=== PATIENT | male | born 1955 | race Hispanic/Latino ===

== ENCOUNTER 2018-05-19 17:37 | Inpatient (IN) | payer OTHER ==
[2018-05-19 17:42] VITALS: BMI 27.1
[2018-05-19 18:00] LABS: BASO # 0.1 K/uL (0.0-0.2); BASO % 0.4 % (0.0-2.0); EOS # 0.1 K/uL (0.0-0.7); EOS % 1.1 % (0.0-4.0); HEMOGLOBIN 16.6 g/dL (12.0-18.0); LYMPH # 2.1 K/uL (1.0-4.3); LYMPH % 16.4 % (20.0-40.0); MEAN CELL VOLUME 89.7 fl (80.0-94.0); MEAN CORPUSCULAR HEMOGLOBIN 29.8 pg (27.0-31.0); MEAN CORPUSCULAR HGB CONC 33.2 g/dL (33.0-37.0); MEAN PLATELET VOLUME 8.9 fl (7.2-11.7); MONO # 0.9 K/uL (0.0-0.8); MONO % 6.9 % (0.0-10.0); NEUT # 9.6 K/uL (1.8-7.0); NEUT % 75.2 % (50.0-75.0); NRBC % 0.1 % (0.0-0.0); RBC 5.58 Mil/uL (4.40-5.90); RED CELL DISTRIBUTION WIDTH 13.8 % (11.5-14.5); WHITE BLOOD COUNT 12.8 K/uL (4.8-10.8)
[2018-05-19 18:07] LABS: BLOOD UREA NITROGEN 13 mg/dl (9-20); CALCIUM 9.5 mg/dL (8.4-10.2); GFR NON-AFRICAN AMERICAN > 60
--- NOTE | 2018-05-19 18:27 | ED PDOC ---
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 Patient was found outside of police department rambling about hotel, but not providing any information and not wearing shoes. He was combative when he came in. Patient was not complaint, required restraints and chemical sedation. Past Medical History Reviewed: Nursing Documentation, Vital Signs, Unable To Obtain Vital Signs: Last Vital Signs Temp 97.2 F L 05/19/18 18:18 Pulse 89 05/19/18 18:18 Resp 13 05/19/18 18:18 BP 127/78 05/19/18 18:18 Pulse Ox 100 05/19/18 18:18 - Family History Family History: States: Unknown Family Hx - Home Medications Home Medications: Ambulatory Orders Medication Instructions Recorded RX: No Known Home Med 05/21/18 - Allergies Allergies/Adverse Reactions: Allergies Allergy/AdvReac Type Severity Reaction Status Date / Time No Known Allergies Allergy Verified 05/19/18 17:42 Review of Systems ROS Statement: Except As Marked, All Systems Reviewed And Found Negative Neurological: Positive for: Altered Mental Status Physical Exam - Reviewed Nursing Documentation Reviewed: Yes Vital Signs Reviewed: Yes - Physical Exam Skin: Negative for: Rash Respiratory: Positive for: Normal Breath Sounds Gastrointestinal/Abdominal: Positive for: Normal Exam, Soft. Negative for: Tenderness Comments: Patient is agitated, incomprehensible with incoherent speech. He is combative, flailing all extremities and kicking staff. No visible signs of trauma or any abnormalities. - Laboratory Results Result Diagrams: 05/19/18 17:50 05/19/18 17:50 - ECG ECG Rhythm: Positive for: Sinus Tachycardia O2 Sat by Pulse Oximetry: 100 (RA) Pulse Ox Interpretation: Normal Medical Decision Making Medical Decision Making: Time: 1741 EDP will rule out organic cause --Patient sedated --Labs sent including alcohol and drug screen --1:1 --monitoring and evaluation advisor --Will reassess patient --Continue to observe --- Scribe Attestation: Documented by Hetal Almaraz, acting as a scribe for Mary Sanders MD Provider Scribe Attestation: All medical record entries made by the Scribe were at my direction and personally dictated by me. I have reviewed the chart and agree that the record accurately reflects my personal performance of the history, physical exam, medical decision making, and the department course for this patient. I have also personally directed, reviewed, and agree with the discharge instructions and disposition. 1900: Pt sedated. Labs and CXR pending. Pt to be signed out to Dr. Onofre pending res ults and resolution of AMS. Disposition - Clinical Impression Clinical Impression: Bipolar 1 disorder - Disposition Disposition: Transfer of Care Disposition Time: 19:00 (Dr. Onofre will follow) Condition: STABLE
[2018-05-20 06:08] LABS: BARBITURATES, UR NEGATIVE (NEGATIVE); BENZODIAZEPINES, UR NEGATIVE (NEGATIVE); OPIATES, UR NEGATIVE (NEGATIVE); PHENCYCLIDINE, UR NEGATIVE (NEGATIVE)
--- NOTE | 2018-05-20 06:28 | ED PDOC ---
- Laboratory Results Result Diagrams: 05/19/18 17:50 05/19/18 17:50 - ECG O2 Sat by Pulse Oximetry: 99 (RA) Pulse Ox Interpretation: Normal Medical Decision Making Medical Decision Making: Time: 190 Patient endorsed to me by Dr. Sanders, pending results and resolution of AMS. Time:623 -- Spoke to sister of the patient who provided collateral. Sister states patient is diagnosed with Bipolar Disorder and is off his medications. Sister reports of having last seen the patient one week ago. Sister states patient had pressured speech and seemed manic. Sister believes the patient is a risk to himself. Patient is currently awake and alert. During interview, patient has flight of ideas but is redirectable. Time: 699 -- Patient endorsed to Dr. Darden, pending CT and [facility] psychiatric screening. Scribe Attestation: Documented by Danielle Meyer, acting as a scribe for Abdiaziz Onofre MD. Provider Scribe Attestation: All medical record entries made by the Scribe were at my direction and personally dictated by me. I have reviewed the chart and agree that the record accurately reflects my personal performance of the medical decision making and dispostion for this patient. I have also personally directed, reviewed, and agree with the discharge instructions and disposition. Disposition - Clinical Impression Clinical Impression: Bipolar 1 disorder - POA Present On Arrival: None - Disposition Disposition: Transfer of Care Disposition Time: 07:00 Condition: FAIR Forms: [employer] (Kazakh) Patient Signed Over To: Jolanta Darden Handoff Comments: pending [facility] eval
--- NOTE | 2018-05-20 08:04 | ED PDOC ---
- Laboratory Results Result Diagrams: 05/19/18 17:50 05/19/18 17:50 - ECG O2 Sat by Pulse Oximetry: 99 (RA) Medical Decision Making Medical Decision Making: received patient from Dr. Onofre. Patient is pending [facility] evaluation. At present he is calm and without distress. patient has been calm the past 8 hours. Still pending [facility] evaluation. Disposition - Clinical Impression Clinical Impression: Bipolar 1 disorder - POA Present On Arrival: None - Disposition Disposition: Transfer of Care Disposition Time: 14:59 Condition: FAIR Forms: [facility] [employer] (Mohawk) Patient Signed Over To: Mojgan Caldwell
[2018-05-20] MEDS ORDERED: Sodium Chloride 0.9% 1,000 ML IV STA (08:18)
--- NOTE | 2018-05-20 09:07 | RAD ---
Date of service: 05/19/2018 HISTORY: possible admission COMPARISON: No prior. FINDINGS: LUNGS: Mild crowding at the right lung base and to a lesser degree at the left lung base. No focal infiltrate. PLEURA: No significant pleural effusion identified, no pneumothorax apparent. CARDIOVASCULAR: No aortic atherosclerotic calcification present. Mildly enlarged. No pulmonary vascular congestion. OSSEOUS STRUCTURES: No significant abnormalities. VISUALIZED UPPER ABDOMEN: Normal. OTHER FINDINGS: None. IMPRESSION: No focal infiltrate.
[2018-05-20 09:08] LABS: URINE BACTERIA RARE (<OCC); URINE BILIRUBIN NEGATIVE (NEGATIVE); URINE BLOOD NEGATIVE (NEGATIVE); URINE CLARITY CLOUDY (Clear); URINE COLOR YELLOW (YELLOW); URINE GLUCOSE (UA) NEG (Normal); URINE LEUKOCYTE ESTERASE NEG Leu/uL (Negative); URINE PROTEIN NEGATIVE (NEGATIVE)
[2018-05-20 09:09] LABS: SQUAMOUS EPITHIAL 3 /hpf (0-5)
--- NOTE | 2018-05-20 10:38 | CT ---
Date of service: 05/20/2018 PROCEDURE: CT HEAD WITHOUT CONTRAST. HISTORY: AMS COMPARISON: None available. TECHNIQUE: Axial computed tomography images were obtained through the head/brain without intravenous contrast. Radiation dose: Total exam DLP = 922.51 mGy-cm. This CT exam was performed using one or more of the following dose reduction techniques: Automated exposure control, adjustment of the mA and/or kV according to patient size, and/or use of iterative reconstruction technique. FINDINGS: HEMORRHAGE: No intracranial hemorrhage. BRAIN: No mass effect or edema. There is evidence of mild age related atrophy and small vessel changes in the white matter tracts. No cortical effacement is seen. Posterior fossa is unremarkable. VENTRICLES: Unremarkable. No hydrocephalus. CALVARIUM: Unremarkable. PARANASAL SINUSES: Moderate pansinusitis MASTOID AIR CELLS: Unremarkable as visualized. No inflammatory changes. OTHER FINDINGS: Orbits are unremarkable. IMPRESSION: No evidence of recent infarct or intracranial hemorrhage. This agrees with preliminary report. Chronic sinusitis.
--- NOTE | 2018-05-20 15:42 | ED PDOC ---
- Laboratory Results Result Diagrams: 05/19/18 17:50 05/19/18 17:50 - ECG O2 Sat by Pulse Oximetry: 99 (RA) Medical Decision Making Medical Decision Makin:00 Patient signed out to this provider by Dr. Darden. Pending [facility] evaluation for involuntary psychiatric admission. Patient was medically cleared by previous shift. Patient is stable at this time. 00:00 Patient signed out to Dr. Rebolledo pending bed availability at [facility] Scribe Attestation: Documented by Omar Almaraz acting as a scribe for Mojgan Caldwell MD. Provider Scribe Attestation: All medical record entries made by the Scribe were at my direction and personally dictated by me. I have reviewed the chart and agree that the record accurately reflects my personal performance of the history, physical exam, medical decision making, and the department course for this patient. I have also personally directed, reviewed, and agree with the discharge instructions and disposition. Disposition - Clinical Impression Clinical Impression: Bipolar 1 disorder - POA Present On Arrival: None - Disposition Disposition: Transfer of Care Disposition Time: 00:00 Condition: STABLE Forms: [employer] (Czech)
--- NOTE | 2018-05-21 00:10 | ED PDOC ---
- Laboratory Results Result Diagrams: 05/19/18 17:50 05/19/18 17:50 - ECG O2 Sat by Pulse Oximetry: 99 Medical Decision Making Medical Decision Makin:00 Patient endorsed to provider by Dr. Caldwell pending [facility] [place]. Patient has been accepted to [facility]. 0300 pt resting comfortably in no distress. 07:00 -Patient will be signed out to Dr. Lima pending [facility] [place]. Scribe Attestation: Documented by Yusuf Weston, acting as a scribe for Lenny Rebolledo MD. Provider Scribe Attestation: All medical record entries made by the Scribe were at my direction and personally dictated by me. I have reviewed the chart and agree that the record accurately reflects my personal performance of the history, physical exam, medical decision making, and the department course for this patient. I have also personally directed, reviewed, and agree with the discharge instructions and disposition. Disposition - Clinical Impression Clinical Impression: Bipolar 1 disorder - POA Present On Arrival: None - Disposition Disposition: Transfer of Care Disposition Time: 07:00 Condition: STABLE Patient Signed Over To: Live Lima
--- NOTE | 2018-05-21 07:27 | ED PDOC ---
- Laboratory Results Result Diagrams: 05/19/18 17:50 05/19/18 17:50 - ECG O2 Sat by Pulse Oximetry: 99 (RA) Pulse Ox Interpretation: Normal Medical Decision Making Medical Decision Makin Patient signed out to me by Dr. Rebolledo. Patient currently pending [facility] bed availability. 1700 Patient to be signed out to Dr. Caldwell pending [facility] bed availability. Scribe Attestation: Documented by Terese Robledo, acting as a scribe for Live Lima MD. Provider Scribe Attestation: All medical record entries made by the Scribe were at my direction and personally dictated by me. I have reviewed the chart and agree that the record accurately reflects my personal performance of the history, physical exam, medical decision making, and the department course for this patient. I have also personally directed, reviewed, and agree with the discharge instructions and disposition. Disposition - Clinical Impression Clinical Impression: Bipolar 1 disorder - POA Present On Arrival: None - Disposition Disposition: Transfer of Care Disposition Time: 17:00 Condition: STABLE
--- NOTE | 2018-05-21 10:17 | CARD ---
APPROVED REPORT Date of service: 05/20/2018 EKG Measurement Heart [id number] <Conclusion> Sinus rhythm with sinus arrhythmia with occasional premature ventricular complexes Otherwise normal ECG
--- NOTE | 2018-05-21 12:45 | CP.PCM.CON ---
History of Present Illness - History of Present Illness History of Present Illness: pt is 62 ys old male with previous psychiatric diagnosis of bipolar disorder, brought to ER by police for exhibiting disorganized behavior Pt displayed combative behavior upon arrival to ER and had to be chemically and physically restrained pt has been psychotic irritable, agitated refusing voluntary admission, pt was screened by [facility] and found to meet criteria for involuntary admission pt ON EVALUATION TODAY, FLORIDLY PSYCHOTIC, PRESENTING WITH LABILE AFFECT, LOUD AND PRESSURED SPEECH, thought process is tangential, , refusing medications and refusing voluntry admission, with no insight into his illness Past Patient History - Past Social History Smoking Status: Unknown If Ever Smoked - CARDIAC Hx Cardiac Disorders: No Hx Hypertension: No - PULMONARY Hx Tuberculosis: No - NEUROLOGICAL HX Cerebrovascular Accident: No Hx Seizures: No - HEMATOLOGICAL/ONCOLOGICAL Hx Cancer: No Hx Human Immunodeficiency Virus (HIV): No - GENITOURINARY/GYNECOLOGICAL Hx Sexually Transmitted Disorders: No - PSYCHIATRIC Hx Substance Use: No (Unkown) - SURGICAL HISTORY Hx Surgeries: No (Unable to obtain) Meds Allergies/Adverse Reactions: Allergies Allergy/AdvReac Type Severity Reaction Status Date / Time No Known Allergies Allergy Verified 05/19/18 17:42 Results - Vital Signs Recent Vital Signs: Last Vital Signs Temp 98.1 F 05/21/18 08:00 Pulse 87 05/21/18 08:00 Resp 18 05/21/18 08:00 BP 138/76 05/21/18 08:00 Pulse Ox 95 05/21/18 08:00 - Labs Result Diagrams: 05/19/18 17:50 05/19/18 17:50 Labs: Laboratory Results - last 24 hr 05/19/18 17:42 POC Glucose (mg/dL) 112 H Assessment & Plan - Assessment and Plan (Free Text) Assessment: Bipolar disorder MRE mixed severe with psychotic features cannabis use disorder Plan: pt has been accepted for involuntary admission by [facility] , AWAITING BED recommend starting risperidone 1mg bid recommend starting haldol 5mg po q6prn for agitation ativan 1mg po q6prn for anxiety benadryl 25mg po q6 prn for EPS
--- NOTE | 2018-05-21 17:27 | ED PDOC ---
- Laboratory Results Result Diagrams: 05/19/18 17:50 05/19/18 17:50 - ECG O2 Sat by Pulse Oximetry: 99 (RA) - Progress ED Course And Treament: 5p Rec'd endorsement from Dr Lima. Pt accepted for transfer to [facility] for Involuntary psychiatric unit. Pending bed availability. Medical Decision Making Medical Decision Makin:00 0000 --Care endorsed to Dr. Mckinney pending [facility] bed availability Scribe Attestation: Documented by Henrietta Kessler, acting as a scribe for Mojgan Caldwell MD Provider Scribe Attestation: All medical record entries made by the Scribe were at my direction and personally dictated by me. I have reviewed the chart and agree that the record accurately reflects my personal performance of the history, physical exam, medical decision making, and the department course for this patient. I have also personally directed, reviewed, and agree with the discharge instructions and disposition. Disposition - Clinical Impression Clinical Impression: Bipolar 1 disorder - POA Present On Arrival: None - Disposition Disposition: Transfer of Care Disposition Time: 00:00 Condition: STABLE Patient Signed Over To: Kj Mckinney
--- NOTE | 2018-05-22 03:34 | ED PDOC ---
- Laboratory Results Result Diagrams: 05/19/18 17:50 05/19/18 17:50 - ECG O2 Sat by Pulse Oximetry: 99 (RA) Pulse Ox Interpretation: Normal Medical Decision Making Medical Decision Makin --Care endorsed to this provider by Dr. Caldwell pending [facility] bed availability. 0700 --Patient will be signed out to Dr. Pennington pending bed availability. Scribe Attestation: Documented by Henrietta Kessler, acting as a scribe for Kj Mckinney MD Provider Scribe Attestation: All medical record entries made by the Scribe were at my direction and personally dictated by me. I have reviewed the chart and agree that the record accurately reflects my personal performance of the history, physical exam, medical decision making, and the department course for this patient. I have also personally directed, reviewed, and agree with the discharge instructions and disposition. Disposition - Clinical Impression Clinical Impression: Bipolar 1 disorder - POA Present On Arrival: None - Disposition Disposition: Admitted as In-Patient Disposition Time: 22:00 Condition: FAIR Forms: [employer] (Serbian)
[2018-05-22] MEDS ORDERED: DiphenhydrAMINE 50 mg/ml Inj IM PRN (12:00)
[2018-05-22] MEDS ORDERED: Alum-Mag Hydrox-Simethicone Susp (30 mL) PO PRN (12:00)
[2018-05-22] MEDS ORDERED: Magnesium Hydroxide Susp 30 ml UD PO PRN (12:00)
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
--- NOTE | 2018-05-22 14:55 | PCM.PSYCH ---
Initial Psychiatric Evaluation - Initial Psychiatric Evaluation Type of Admission: Voluntary Legal Status: Capacity Chief Complaint (in patient's own words): I just wanted to travel and have some fun History of Present Illness and Precipitating Events: pt is a 62 ys old male with previous psychiatric diagnosis of bipolar disorder, cannabis abuse, non compliant for medications or follow up , brought to ER by police for disorganized behaviour , pt has been loud and combative in ER had to be chemically restrained on evaluation pt is manic , presenting with pressured and loud speech, labile affect alternating between laughing inappropriately and unprovoked episodes of crying, thought process tangential , with loose association stated that he has been travelling to have fun and explore the world, floridly psychotic stating that his belongs to a cult and she is the one who is sick, no insight into illness , does not beleive he needs medication, pt reported he has been using cannabis daily, denied command hallucinations, collateral information/ obtained pt's sibling (Andry's phone [phone]) from Dr. Onofre, whom reported that she lives in [place] and pt also resides in that same state. Pt's sibling reported pt lives in [place], [place] and he has a psychiatric diagnosis of Bipolor Disorder. Pt's sibling stated that pt has been admitted to psychiatric inpatient units before due to his non-compliance with psychiatric treatment, including medication. As per pt's sibling, it seems like pt's intention into traveling across states is to "get a job." Pt's sibling reported that pt was stopped by the police for a DUI on 05/14/2018 and his car got impounded. Pt's sibling stated that pt would tell everyone he is ,but he is not. Pt's sibling reported pt is very upset with his (Korin) because she became yarsani and she attends yazidi regularly;however, pt's sibling stated that pt would not talk her, in his state of mind pt assures that his is following a cult. Pt's sibling believes pt would benefit from being admitted so that he can stabilize mentally. *Note: Pt's sibling provided pt's and son's phone number in order to keep them inform about well-being and request any additional information. Korin's - [phone]/ Regee-pt's son [phone] Current Medications: Active Medications Generic Name Dose Route Start Last Admin Trade Name Freq PRN Reason Stop Dose Admin Acetaminophen 650 mg 05/22/18 12:00 Tylenol 325mg Tab PO Q4 PRN Pain, moderate (4-7) Al Hydrox/Mg Hydrox/Simethicone 30 ml 05/22/18 12:00 Maalox Plus 30 Ml PO Q4 PRN Dyspepsia Diphenhydramine HCl 50 mg 05/22/18 12:00 Benadryl IM Q6 PRN Extrapyramidal S/S Unable PO Diphenhydramine HCl 50 mg 05/22/18 12:00 Benadryl PO Q6 PRN Extrapyramidal Symptoms Haloperidol 5 mg 05/22/18 12:00 Haldol PO Q4 PRN Agitation Haloperidol Lactate 5 mg 05/22/18 12:00 Haldol IM Q4 PRN Agitation, Unable to Take PO [place] Carbonate 300 mg 05/22/18 22:00 [place] Carbonate 300mg PO HS FLORIDALMA [place] Carbonate 300 mg 05/23/18 09:00 [place] Carbonate 300mg PO DAILY FLORIDALMA Lorazepam 2 mg 05/22/18 12:00 Ativan IM Q4 PRN Anxiety/Agitation,Unable PO Lorazepam 1 mg 05/22/18 12:00 Ativan PO Q8 PRN Anxiety/Agitation Magnesium Hydroxide 30 ml 05/22/18 12:00 Milk Of Magnesia PO HS PRN Constipation Trazodone HCl 100 mg 05/22/18 22:00 Desyrel PO HS FLORIDALMA Past Psychiatric History - Past Psychiatric History Explanation of prior treatment: pt has multiple hospitalizations, hx of non compliance with treatment or follow up History of ETOH/Drug Use: hx of cannabis use Pertinent Medical Hx (Current Medical&Sleep Prob, Allergies): Allergies Allergy/AdvReac Type Severity Reaction Status Date / Time No Known Allergies Allergy Verified 05/19/18 17:42 No Known Home Med 05/21/18 Mental Status Examination - Personal Presentation Personal Presentation: Looks older than stated age - Affect Additional comments: labile - Motor Activity Motor Activity: Psychomotor Agitation - Reliability in Providing Information Reliability in Providing Information: Poor, due to alteration in thoughts, Poor, due to altered mood - Speech Speech: Disorganized, Tangential - Mood Mood: Anxious, Euphoric - Formal Thought Process Formal Thought Process: Delusions, Paranoia, Loosening of associations - Obsessions/Compulsions Obsessions: No Compulsions: No - Cognitive Functions Orientation: Person Attention/Concentration: Easily distracted Abstract Thinking: Dixon Judgement: Imparied, as evidence by: Poor judgement, Imparied, as evidence by: Lack of insight into illness - Strength & Assets Inventory Strength & Assets Inventory: Education - Limitations Additional comments: poor insight DSM 5 DX - DSM 5 DSM 5 Diagnosis: bipolar I disorder MRE manic severe with psychotic features - Recommended/Plan of Treatment Treatment Recommendations and Plan of Treatment: start lithium 300mg bid start risperidone 1mg qhs encourage compliance increase gradually internal medicine consult CBT group and supportive therapy
[2018-05-22] MEDS: Risperidone M TAB 2 MG PO SCH (21:36)
[2018-05-23 09:08] LABS: T4 9.11 ug/dl (5.5-11.0)
[2018-05-23 10:44] VITALS: O2SAT 99
--- NOTE | 2018-05-23 17:24 | PCM.PYCHPN ---
Psychiatric Progress Note - Psychiatric Progress Note Patient seen today, length of contact: pt evaluated discussed with team chart reviewed Patient Chief Complaint: I know the medicine makes me sick Problems Identified/Issues Discussed: pt evaluated, speech pressured and loud, tangential thought process with loose association, paranoid delusions towards and family, limited insight into illness continues to believe he does , need medication, no reported side effects, denied suicidal or homicidal ideation, denied command hallucinations Medical Problems: pt has multiple hospitalizations, hx of non compliance with treatment or follow up DSM 5 Symptoms Update: bipolar disorder manic Medication Change: No Medical Record Reviewed: Yes Mental Status Examination - Cognitive Function Orientation: Person, Place, Situation Memory: Intact Attention: Poor Concentration: Poor Association: Loose Fund of Knowledge: Poor Decription of patient's judgement and insights: poor insight and judgment - Mood Mood: Anxious, Euphoric - Affect Additional comments: labile - Formal Thought Process Formal Thought Process: Delusions, Paranoia, Loosening of associations - Suicidal Ideation Suicidal Ideation: No - Homicidal Ideation Homicidal Ideation: No Goal/Treatment Plan - Goal/Treatment Plan Need for Continued Stay: Severe depression anxiety, Discharge may exacerbated symptoms, Failed transitioning Progress Toward Problem(s) and Goals/Treatment Plan: lithium 300mg bid risperidone 1mg qhs encourage compliance increase gradually CBT group and supportive therapy
[2018-05-23] MEDS: Risperidone M TAB 2 MG PO SCH (21:20)
--- NOTE | 2018-05-24 14:51 | PCM.PYCHPN ---
Psychiatric Progress Note - Psychiatric Progress Note Patient seen today, length of contact: pt evaluated discussed with team chart reviewed Patient Chief Complaint: I feel stable with the lithium but I am worried about my kidneys Problems Identified/Issues Discussed: pt evaluated, less labile,speech less pressured and thought process more organized, pt continues to be argumentative about need for medication with limited insight stating he medicates himself with cannabis, psychoeducation provided n reference to side effects of lithium, discussed with pt need to follow up with kidney functions , encouraged compliance, no reported side effects, encouraged to attaend groups pt denied perceptual disturbances, denied S/HI Medical Problems: pt has multiple hospitalizations, hx of non compliance with treatment or follow up DSM 5 Symptoms Update: bipolar I disorder manic severe with psychotic features Medication Change: No Medical Record Reviewed: Yes Mental Status Examination - Cognitive Function Orientation: Person, Place, Situation Memory: Intact Attention: WNL Concentration: WNL Association: WNL Fund of Knowledge: WNL Decription of patient's judgement and insights: poor insight and judgment - Mood Mood: Anxious, Euphoric - Formal Thought Process Formal Thought Process: Delusions, Paranoia, Loosening of associations - Suicidal Ideation Suicidal Ideation: No - Homicidal Ideation Homicidal Ideation: No Goal/Treatment Plan - Goal/Treatment Plan Need for Continued Stay: Severe depression anxiety, Discharge may exacerbated symptoms, Failed transitioning Progress Toward Problem(s) and Goals/Treatment Plan: lithium 300mg bid/ FOLLOW UP ON LITHIUM LEVEL risperidone 2mg qhs encourage compliance increase gradually CBT group and supportive therapy
[2018-05-24] MEDS: Risperidone M TAB 2 MG PO SCH (21:24)
--- NOTE | 2018-05-25 09:47 | PCM.PYCHPN ---
Psychiatric Progress Note - Psychiatric Progress Note Patient seen today, length of contact: pt evaluated discussed with team chart reviewed Patient Chief Complaint: I will use weed to medicate myself it works better Problems Identified/Issues Discussed: pt evaluated,, calmer and less irritable but continues to have overproductive speech with circumstantial and tangential thought process, pt continues to verbalize paranoid delusions towards his and his sibilings, pt has no insight intoo his illness and the need for medications psychoeduction provided discussed with pt possible increase in dose of lithium after checking lithium level, also discussed starting risperidone consta to ensure compliance , but pt declined encouraged pt to attend groups, motivational therapy provided in reference to cannabis abuse Medical Problems: pt has multiple hospitalizations, hx of non compliance with treatment or follow up DSM 5 Symptoms Update: bipolar I disorder MRE manic severe with psychotic features Medication Change: Yes (increase lithium) Medical Record Reviewed: Yes Mental Status Examination - Cognitive Function Orientation: Person, Place, Situation Memory: Intact Attention: WNL Concentration: Poor Association: Loose Fund of Knowledge: WNL Decription of patient's judgement and insights: poor insight and judgment - Mood Mood: Anxious, Euphoric - Affect Affect: Other Additional comments: labile - Speech Speech: Loud, Pressured - Formal Thought Process Formal Thought Process: Delusions, Paranoia, Loosening of associations - Suicidal Ideation Suicidal Ideation: No - Homicidal Ideation Homicidal Ideation: No Goal/Treatment Plan - Goal/Treatment Plan Need for Continued Stay: Severe depression anxiety, Discharge may exacerbated symptoms, Failed transitioning Progress Toward Problem(s) and Goals/Treatment Plan: lithium 300mg bid/ FOLLOW UP ON LITHIUM LEVEL 05/26/18 with plan to increase to 900mg daily risperidone 2mg qhs, encourage starting risperidone consta to ensure compliance CBT group and supportive therapy
[2018-05-25] MEDS: Risperidone M TAB 2 MG PO SCH (21:20)
[2018-05-26] MEDS ORDERED: risperiDONE Consta 25mg/2ml Syringe IM ONE (11:07)
--- NOTE | 2018-05-26 11:11 | PCM.PYCHPN ---
Psychiatric Progress Note - Psychiatric Progress Note Patient seen today, length of contact: pt evaluated discussed with team chart reviewed Patient Chief Complaint: I WILL TRY THE INJECTION Problems Identified/Issues Discussed: pt evaluated,,reported feeling more stable, affect less labile , speech continues to be over productive, pt in agreemet with starting risperidone consta for compliance, also discussed increasing lithium, lithium level noted 0.4, pt denied any current perceptual disturbances denied S/ H I encouraged pt to attend groups, motivational therapy provided in reference to cannabis abuse Medical Problems: pt has multiple hospitalizations, hx of non compliance with treatment or follow up DSM 5 Symptoms Update: BIPOLAR I DISORDER MANIC Medication Change: Yes (increase lithium) Medical Record Reviewed: Yes Mental Status Examination - Cognitive Function Orientation: Person, Place, Situation Memory: Intact Attention: WNL Concentration: Poor Association: Loose Fund of Knowledge: WNL Decription of patient's judgement and insights: poor insight and judgment - Mood Mood: Anxious, Euphoric - Affect Affect: Other - Speech Speech: Loud, Pressured - Formal Thought Process Formal Thought Process: Delusions, Paranoia, Loosening of associations - Suicidal Ideation Suicidal Ideation: No - Homicidal Ideation Homicidal Ideation: No Goal/Treatment Plan - Goal/Treatment Plan Need for Continued Stay: Severe depression anxiety, Discharge may exacerbated symptoms, Failed transitioning Progress Toward Problem(s) and Goals/Treatment Plan: lithium 300mg DAILY AND 450mg qhs . li level 0.4 risperidone 2mg qhs, starting risperidone consta IM 25mg q 2 weeks to ensure compliance CBT group and supportive therapy
[2018-05-26] MEDS: Risperidone M TAB 2 MG PO SCH (21:54)
[2018-05-26] MEDS: Lithium Carbonate 150 MG CAP PO SCH (21:56)
--- NOTE | 2018-05-27 13:28 | PCM.PYCHPN ---
Psychiatric Progress Note - Psychiatric Progress Note Patient seen today, length of contact: pt evaluated discussed with team chart reviewed Patient Chief Complaint: I FEEL GOOD AND MY SET UP THERAPY FOR US Problems Identified/Issues Discussed: pt evaluated,,reported feeling more stable, affect less labile , speech less rapid and thought process more goal directed , no reported side effects of risperidone consta , denied any current perceptual disturbances denied S/ H I encouraged pt to attend groups, motivational therapy provided in reference to cannabis abuse Medical Problems: pt has multiple hospitalizations, hx of non compliance with treatment or follow up DSM 5 Symptoms Update: bipolar I disorder Medication Change: No Medical Record Reviewed: Yes Mental Status Examination - Cognitive Function Orientation: Person, Place, Situation Memory: Intact Attention: WNL Concentration: WNL Association: WNL Fund of Knowledge: [facility] Decription of patient's judgement and insights: poor insight and judgment - Mood Mood: Anxious, Neutral - Affect Affect: Broad, Other - Speech Speech: Loud - Suicidal Ideation Suicidal Ideation: No - Homicidal Ideation Homicidal Ideation: No Goal/Treatment Plan - Goal/Treatment Plan Need for Continued Stay: Severe depression anxiety, Discharge may exacerbated symptoms, Failed transitioning Progress Toward Problem(s) and Goals/Treatment Plan: lithium 300mg DAILY AND 450mg qhs . li level 0.4 risperidone 2mg qhs, starting risperidone consta IM 25mg q 2 weeks to ensure compliance on 05/26/18 CBT group and supportive therapy
[2018-05-27] MEDS: Lithium Carbonate 150 MG CAP PO SCH (21:02)
[2018-05-27] MEDS: Risperidone M TAB 2 MG PO SCH (21:02)
[2018-05-28 09:12] VITALS: BP 113/74; PULSE 73; RESP 19; TEMP 96.9
--- NOTE | 2018-05-28 14:29 | PCM.PYCHDC ---
Mental Status Examination - Mental Status Examination Orientation: Person, Place, Situation Memory: Intact Mood: Neutral Affect: Broad Speech: Appropriate Attention: WNL Concentration: WNL Association: WNL Fund of Knowledge: WNL Formal Thought Process: Circumstantial Description of patient's judgement and insight: poor insight and judgment Psychotic Thoughts and Behaviors: PT ON DISCHARGE NO PSYCHOTIC SYMPTOMS ELICITED Suicidal Ideation: No Current Homicidal Ideation?: No Discharge Summary - Discharge Note Reason for Hospitalization: pt is a 62 ys old male with previous psychiatric diagnosis of bipolar disorder, cannabis abuse, non compliant for medications or follow up , brought to ER by police for disorganized behaviour , pt has been loud and combative in ER had to be chemically restrained on evaluation pt is manic , presenting with pressured and loud speech, labile affect alternating between laughing inappropriately and unprovoked episodes of crying, thought process tangential , with loose association stated that he has been travelling to have fun and explore the world, floridly psychotic stating that his belongs to a cult and she is the one who is sick, no insight into illness , does not beleive he needs medication, pt reported he has been using cannabis daily, denied command hallucinations, Consultations:: List each consultation separately and include: 1. Reason for request. 2. Findings. 3. Follow-up Summary of Hospital Course include:: 1. Description of specific treatment plan utilized for patients during their course of treatmen. 2. Summarize the time- course for resolution of acute symptoms and/or regressed behaviors. 3. Describe issues identified and worked on during hospitalization. 4. Describe medication utilized. 5. Describe medical problems identified and treated. 6. Reassessment of suicide risk Summary of Hospital Course: pt on admission was manic , labile delusional started on lithium and risperidone motivational therapy provided in reference to cannabis abuse pt was compliant with treatment attended groups, no reported side effects of medications pt was started on risperidone consta to ensure compliance on discharge mental status was stable, pt denied any current suicidal or homicidal ideation denied perceptual disturbances, - Diagnosis (1) Emily Current Visit: Yes Status: Acute - Final Diagnosis (DSM 5) Condition upon Discharge: STABLE DSM 5: bipolar I disorder MRE manic severe with psychotic features Disposition: HOME/ ROUTINE Follow-up Treatment Plan: lithium 300mg DAILY AND 450mg qhs . li level 0.4 risperidone 2mg qhs, starting risperidone consta IM 25mg q 2 weeks to ensure compliance on 05/26/18 CBT group and supportive therapy Prescriptions/Medication Reconciliation: Benztropine [Cogentin] 1 mg PO HS 30 Days #30 tab [place] Carbonate [[place] Carbonate 150MG] 450 mg PO HS 30 Days #90 cap [place] Carbonate [[place] Carbonate 300MG] 300 mg PO DAILY 30 Days #30 cap Risperidone [Risperdal M-TAB] 2 mg PO HS 30 Days #30 odt traZODone [Desyrel] 100 mg PO HS 30 Days #30 tab - Antipsychotic Medications Pt discharged on 2 or more routine antipsychotic medications: No
== END 2018-05-28 15:35 | disposition home or self-care (01) | DRG 885 ==
LOC: EDBD 17:37 → H.ER 17:37 → H.ERHOLD 05-22 10:36 → H.PSYCH 05-22 11:42
PROVIDERS: ADMIT Psychiatry & Neurology Psychiatry; ATTEND Psychiatry & Neurology Psychiatry
PROC: GZHZZZZ Group Psychotherapy (ICD-10-PCS; principal; 2018-05-22)
PROC: GZ58ZZZ Individual Psychotherapy, Cognitive-Behavioral (ICD-10-PCS; 2018-05-22)
PROC: GZ56ZZZ Individual Psychotherapy, Supportive (ICD-10-PCS; 2018-05-22)
PROC: HZ57ZZZ Individual Psychotherapy for Substance Abuse Treatment, Motivational Enhancement (ICD-10-PCS; 2018-05-22)
DX: F31.2 Bipolar disorder, current episode manic severe with psychotic features (principal); F12.10 Cannabis abuse, uncomplicated; Z78.1 Physical restraint status; Z91.19 Patient's noncompliance with other medical treatment and regimen; Z91.14 Patient's other noncompliance with medication regimen